=== PATIENT | female | born 1980 | race Caucasian/White ===

== ENCOUNTER → 2017-08-11 10:44 | Outpatient (CLI) | payer OTHER, SELFPAY ==
--- NOTE | 2017-08-11 10:54 | RAD_ITS ---
STUDY: X-RAY CHEST REASON FOR EXAM: Female, 37 years old. Cough TECHNIQUE: PA and lateral views of the chest. COMPARISON: None. FINDINGS: The lungs are clear and expanded. There is no demonstrated pleural abnormality. Normal size heart. Normal mediastinum and kael. Normal visualized pulmonary arteries. Normal visualized aortic arch and descending thoracic aorta. Normal visualized thoracic spine. Normal visualized ribs, clavicles, and shoulders. There is no demonstrated abnormality of the visualized soft tissue structures of the upper abdomen. RAD/Chest PA and Lateral IMPRESSION: Normal x-ray examination of the chest. Electronically Signed: Newton Whitney DO at 11:13 EDT Tel , Service support ,
== END ==
PROVIDERS: Family Provider Family Medicine; PCP Family Medicine; Visit Provider Physician Assistant
DX: J40 Bronchitis, not specified as acute or chronic (principal); R05 Cough
CPT/HCPCS: 71046

== ENCOUNTER → 2017-11-20 18:00 | Outpatient (CLI) | payer OTHER, SELFPAY | PROVIDERS: Family Provider Family Medicine; PCP Family Medicine; Referring Provider Physician Assistant; Visit Provider Physician Assistant | DX: J02.9 Acute pharyngitis, unspecified (principal) | CPT/HCPCS: 87081 ==

== ENCOUNTER 2017-11-25 10:26 | Emergency (ER) | payer OTHER, SELFPAY ==
[2017-11-25 10:29] VITALS: BP 163/103; PULSE 74; RESP 16; TEMP 37.1; O2SAT 99; BMI 31.8
--- NOTE | 2017-11-25 10:34 | VDLE_ITS ---
Reason For Study: LEG PAIN RIGHT LEFT CFV is compressible, spontaneous, phasic, GSV is normal. competent and demonstrates normal CFV is compressible, spontaneous, phasic, augmentation. competent, and demonstrates normal Procedure augmentation. Exam performed portable in ED. FV is compressible, spontaneous, phasic, A preliminary report was called and/or faxed competent and demonstrates normal to Dr. Muñoz. augmentation. POP V is compressible, spontaneous, phasic, competent and demonstrates normal augmentation. T/P Trunk is compressible. PTV is compressible. LT PerV is compressible. Interpretation Summary There is no evidence of left lower extremity deep vein thrombosis. Left greater saphenous vein appears patent and compressible segmentally. Normal flow patterns right common femoral vein. Ordering Physician: Margie Muñoz Referring Physician: Iván Quinones Performed By: Letty Raymundo RVT
[2017-11-25] MEDS: Ibuprofen 600 MG Tablet PO (10:50)
--- NOTE | 2017-11-25 10:52 | ED.VISSUMM ---
- ER Visit Summary Date of Service: 11/25/17 Chief Complaint: Left calf pain History of Present Illness: The patient is a 37 F who presents for left calf pain, gradually worsening over the last week. Patient is noticed discomfort in her left calf that is gradually worsened, and is worse with exertion. Today she was running up the stairs and had extreme sudden discomfort. Pain is worse with dorsiflexion of the foot and weightbearing. Patient denies any history of injury or overuse. No new activities that might explain the new pain. She denies any chest pain, shortness of breath, fever, or any other complaints. No history of venous thromboembolism, no family history of venous thromboembolism, no smoking, no exogenous hormone use. No recent travel or surgery. Physical Examination: Vital signs: afebrile, hemodynamically stable, no hypoxia on room air General: well nourished, well developed, in no distress Skin: warm, dry, no rash, no pallor HEENT: normocephalic and atraumatic; PERRL, EOMI, moist mucous membranes Cardiovascular: regular rate and rhythm without murmurs, no peripheral edema, 2+ pulses all distal extremities Respiratory: No increased work of breathing, lungs are clear to auscultation bilaterally, no rales, rhonchi or wheezing Abdominal: Abdomen is soft, nontender with normoactive bowel sounds, no guarding or rebound, no masses MSK: Moves all extremities, no deformities, normal strength, no asymmetry on evaluation of the calves, tenderness to palpation of the posterior medial left calves, no palpable cords. Positive Homans sign. DP pulses are 2+ and symmetric. No other abnormalities on lower extremity exam. Neuro: Awake and alert, oriented ?4. No facial droop, sensation and motor function intact and symmetric Test Results: Medications Given Discontinued Medications Ibuprofen (Motrin) 600 mg PO X1 ONE Stop: 11/25/17 10:48 Last Admin: 11/25/17 10:50 Dose: 600 mg Emergency Department Course and Treatment: Patient was given ibuprofen for her pain. An ultrasound was performed of the left lower extremity to rule out DVT. Ultrasound was negative for DVT. Patient will use NSAIDs at home as needed for pain. We discussed rest, ice, elevation gentle stretching and NSAIDs. Patient will follow up with her doctor if she is not having improvement. Discharged home. Treatment Plan: [] Disposition: [] Impression: Left gastrocnemius strain This note was generated with [employer] dictation software. It may contain incorrect words, spelling, and punctuation that were not noted in review of the chart prior to signing ED Disposition - Plan for ED Patient: Chief Complaint: Lower Extremity Injury Referrals: Lina Griffin MD [Primary Care Provider] -
--- NOTE | 2017-11-25 12:17 | ED.DEP ---
ED Disposition - Plan for ED Patient: Disposition: Home or Assisted Living Chief Complaint: Lower Extremity Injury Instructions: Lower Body Exercises: Calf Stretch, ED Strain Muscle Ext Referrals: Lina Griffin MD [Primary Care Provider] - 1 Week if not improving Additional Instructions: Use ibuprofen or naproxen as needed for pain. Perform gentle stretches of the calf and ice it a few times a day for the next couple days to help with any inflammation. Walk on the leg as tolerated. Do not do any heavy exertion until your leg is healed. If you have any worsening of your condition or any new concerning symptoms, please return immediately to the emergency department for another evaluation.
[2017-11-25 12:36] VITALS: BP 149/81; PULSE 78; RESP 16; O2SAT 100
== END 2017-11-25 12:37 | disposition home or self-care (01) ==
PROVIDERS: Emergency Provider Emergency Medicine; Family Provider Family Medicine; PCP Family Medicine
DX: S86.812A Strain of other muscle(s) and tendon(s) at lower leg level, left leg, initial encounter (principal); X58.XXXA Exposure to other specified factors, initial encounter; Y93.02 Activity, running
CPT/HCPCS: 93971; 99283

== ENCOUNTER → 2020-10-02 | Outpatient (CLI) | payer OTHER, SELFPAY ==
[2020-10-02 07:53] VITALS: BMI 33.2
[2020-10-02 10:21] LABS: Mucous, Urine 0 SEEN /hpf (<or=2+)
[2020-10-02 10:31] LABS: Color, Urine Yellow (Yellow); Glucose, Dipstick Normal (Normal); Ketone-Dipstick Negative (Negative); Leukocyte Esterase-Dipstick 500 /ul (Negative); Nitrite-Dipstick Positive (Negative); Occult Blood-Urine 250 /ul (Negative); Protein-Dipstick 30 mg/dl (Negative); Urine Bilirubin Dipstick Negative (Negative); Urine Clarity Cloudy (Clear); Urine Urobilinogen Normal (Normal)
[2020-10-02 10:41] LABS: Bacteria 2+ /hpf (None Seen); Red Blood Cells-Urine 25-50 SEEN /hpf (0-5); Squamous Epithelial Cells - UA 0-5 SEEN /hpf (5-10); White Blood Cells 50-100 SEEN /hpf (0-5)
== END | disposition home or self-care (01) ==
LOC: LABSPEC 09:52
PROVIDERS: Visit Provider Physician Assistant Surgical
DX: N39.0 Urinary tract infection, site not specified (principal)
CPT/HCPCS: 81001; 87077; 87086; 87088; 87186

== ENCOUNTER → 2023-12-02 | Outpatient (CLI) | payer OTHER, SELFPAY | END | disposition home or self-care (01) | LOC: LABSPEC 18:21 | PROVIDERS: Visit Provider Nurse Practitioner Family | DX: N39.0 Urinary tract infection, site not specified (principal) | CPT/HCPCS: 87086; 87088; 87186 ==